=== PATIENT | male | born 1960 | race Native Hawaiian/Other Pacific Islander ===

== ENCOUNTER 2019-01-12 11:10 | Outpatient (CLI) | payer OTHER ==
[~2019-01-12 11:10] MED LIST: CEPH500C20 PO; CLONIDINE0.2 MG PO; HYDROXYZ HCL50 MG PO; LOPRESSOR100 MG PO; ORAPRED ODT10 MG OR; TRIAMCINOLON0.5 % TOP; ZESTRIL30 MG PO
[2019-01-12 12:24] LABS: PLATELET COUNT 229 K/uL (142-355)
[2019-01-12 12:42] LABS: POTASSIUM 3.4 mmol/L (3.6-5.2)
== END 2019-01-12 21:06 | disposition home or self-care (01) ==
LOC: LABW 11:10
PROVIDERS: Nurse Practitioner Family
DX: Z86.19 Personal history of other infectious and parasitic diseases (principal); E78.49 Other hyperlipidemia; R53.83 Other fatigue; Z12.5 Encounter for screening for malignant neoplasm of prostate; Z79.899 Other long term (current) drug therapy; E55.9 Vitamin D deficiency, unspecified; N40.0 Benign prostatic hyperplasia without lower urinary tract symptoms
CPT/HCPCS: 36415; 80053; 80061; 82652; 84154; 84436; 84443; 85027; 87040

== ENCOUNTER 2020-04-07 11:46 | Emergency (ER) | payer OTHER ==
[~2020-04-07] VITALS: Ht 188 cm; Wt 122.5 kg
[2020-04-07 13:09] LABS: PLATELET COUNT 278 K/uL (142-355)
[2020-04-07 13:19] LABS: POTASSIUM 3.6 mmol/L (3.6-5.2)
[2020-04-07 16:27] VITALS: BP 140/92; TEMP 98
== END 2020-04-07 16:35 | disposition home or self-care (01) ==
LOC: ED 11:46
PROVIDERS: Emergency Medicine
DX: N23 Unspecified renal colic (principal)
CPT/HCPCS: 36415; 80053; 81000; 82150; 83690; 85027; 96374; 96375; 99284; J1885; J2175; Q9963

== ENCOUNTER 2020-07-25 18:47 | Emergency (ER) | payer OTHER ==
[~2020-07-25] VITALS: Ht 188 cm; Wt 122.5 kg
[2020-07-26 06:09] LABS: PLATELET COUNT 248 K/uL (142-355)
[2020-07-26 06:19] LABS: POTASSIUM 3.7 mmol/L (3.6-5.2)
[2020-07-26 07:00] VITALS: BP 167/90; TEMP 98.3
== END 2020-07-26 16:00 | disposition other institution (70) ==
LOC: ED 18:58
PROVIDERS: Family Medicine
PROC: 0HQ0XZZ Repair Scalp Skin, External Approach (ICD-10-PCS; principal; 2020-07-25)
DX: F10.129 Alcohol abuse with intoxication, unspecified (principal); S01.01XA Laceration without foreign body of scalp, initial encounter; R45.851 Suicidal ideations; F32.89 Other specified depressive episodes; Z03.818 Encounter for observation for suspected exposure to other biological agents ruled out
CPT/HCPCS: 36415; 80053; 80307; 80320; 80329; 81000; 82550; 82553; 84484; 85027; 87635; 93005; 96372; 99285; J1200; J1630; J2060; U0003

== ENCOUNTER 2021-01-08 11:05 | Outpatient (CLI) | payer OTHER | END 2021-01-08 22:06 | disposition home or self-care (01) | LOC: LABW 11:05 | PROVIDERS: ATTEND Internal Medicine | DX: I10 Essential (primary) hypertension (principal); R53.83 Other fatigue; Z79.899 Other long term (current) drug therapy | CPT/HCPCS: 36415; 82024; 82088; 82533; 82607; 82728; 82746; 83036; 83540; 83550; 83835; 84244; 84402; 84403; 84436; 84443; 85652; 86038; 86140; 86225 ==